=== PATIENT | female | born 1965 ===

== ENCOUNTER 2018-10-13 20:25 | Observation (INO) | payer SELFPAY ==
--- NOTE | 2018-10-13 21:14 | C.PDOC ---
History Of Present Illness 53 year old female with PMHc of HTN and ESRD presents to the ED c/o SOB, headache. Patient was recently admitted for renal failure and was discharged on 10/08. As per discharge indications patient was advised to return if dialysis wa s required again. Patient reports she is visiting from the [place] and will go back on 10/18. Patient is non complaint with her treatment, states her last dialysis was on Wednesday. Patient denies fever, chills, palpitations, nausea, vomit, abdominal pain, rash, weakness, numbness. Time Seen by Provider: 10/13/18 20:54 Chief Complaint (Nursing): Shortness Of Breath History Per: Patient History/Exam Limitations: no limitations Onset/Duration Of Symptoms: Days Current Symptoms Are (Timing): Still Present Initiating Event: Other Quality: "Pain" Current Respiratory Medications: See Home Med List Reports Recently: Seen In ED (10/04/18) Recent travel outside of the [place]: No Additional History Per: Patient Past Medical History Reviewed: Historical Data, Nursing Documentation, Vital Signs Vital Signs: Last Vital Signs Temp 97.5 F L 10/13/18 20:58 Pulse 84 10/13/18 20:58 Resp 16 10/13/18 20:58 BP 180/100 H 10/13/18 20:58 Pulse Ox 98 10/13/18 20:58 - Medical History PMH: HTN, End Stage Renal Disease, Chronic Kidney Disease Surgical History: No Surg Hx - [facility] (10/07/18) Family History: States: Unknown Family Hx - Social History Hx Alcohol Use: No Hx Substance Use: No - Immunization History Hx Tetanus Toxoid Vaccination: Yes Hx Influenza Vaccination: Yes Hx Pneumococcal Vaccination: No Review Of Systems Constitutional: Negative for: Fever, Chills Cardiovascular: Negative for: Chest Pain, Palpitations Respiratory: Positive for: Shortness of Breath. Negative for: Cough, Sputum Gastrointestinal: Negative for: Nausea, Vomiting, Abdominal Pain Genitourinary: Negative for: Dysuria Skin: Negative for: Rash Neurological: Positive for: Headache. Negative for: Weakness, Numbness, Dizziness Physical Exam - Physical Exam Appears: Non-toxic, No Acute Distress Skin: Normal Color, Warm, Dry, Other (right forearm varicosity non tender, non fluctuant, no erythema) Head: Atraumatic, Normacephalic Eye(s): bilateral: Normal Inspection Oral Mucosa: Moist Neck: Normal ROM, Supple Chest: Symmetrical Cardiovascular: Rhythm Regular Respiratory: Normal Breath Sounds, No Rales, No Rhonchi, No Wheezing Gastrointestinal/Abdominal: Soft, No Tenderness, No Guarding, No Rebound Extremity: Normal ROM, No Tenderness, No Swelling Neurological/Psych: Oriented x3, Normal Speech, Normal Cognition Gait: Steady ED Course And Treatment - Laboratory Results Result Diagrams: 10/13/18 21:22 10/13/18 21:22 Interpretation Of Abnormal: POTASSIUM HEMOLYZED ECG: Interpreted By Me, Viewed By Me ECG Rhythm: Sinus Rhythm Rate From EC (BPM) O2 Sat by Pulse Oximetry: 98 (ON RA) Pulse Ox Interpretation: Normal - Radiology CXR: Interpreted by Me, Viewed By Me CXR Interpretation: Yes: No Acute Disease. No: Infiltrates - Physician Consult Information Time Consulting Physician Contacted: 22:17 Physician Contacted: Wale Whaley Medical Decision Making Medical Decision Making: Plan: * EKG * Labs * CXR Disposition Counseled Patient/Family Regarding: Studies Performed, Diagnosis - Disposition Disposition: HOSPITALIZED Disposition Time: 22:17 Condition: SERIOUS Forms: [facility] (Telugu) - POA Present On Arrival: Poor Glycemic Control - Clinical Impression Clinical Impression: ESRD (end stage renal disease), Dyspnea - Scribe Statement The provider has reviewed the documentation as recorded by the Scribe Sunil Zaidi All medical record entries made by the Scribe were at my direction and personally dictated by me. I have reviewed the chart and agree that the record accurately reflects my personal performance of the history, physical exam, medical decision making, and the department course for this patient. I have also personally directed, reviewed, and agree with the discharge instructions and disposition.
--- NOTE | 2018-10-13 21:15 | C.PDOC ---
Time Seen by Provider: 10/13/18 20:54 Past Medical History Vital Signs: Last Vital Signs Temp 97.5 F L 10/13/18 20:58 Pulse 84 10/13/18 20:58 Resp 16 10/13/18 20:58 BP 180/100 H 10/13/18 20:58 Pulse Ox 98 10/13/18 21:14 - Medical History PMH: HTN, End Stage Renal Disease, Chronic Kidney Disease - [facility] (10/07/18) Family History: States: Unknown Family Hx - Social History Hx Alcohol Use: No Hx Substance Use: No - Immunization History Hx Tetanus Toxoid Vaccination: Yes Hx Influenza Vaccination: Yes Hx Pneumococcal Vaccination: No ED Course And Treatment O2 Sat by Pulse Oximetry: 98 Progress - Data Reviewed Data Reviewed: Lab, Diagnostic imaging, EKG, Old records Disposition - Disposition Forms: [employer] (Ugandan)
[2018-10-13 21:27] LABS: BASO # 0.1 K/uL (0.0-0.2); BASO % 0.9 % (0.0-2.0); EOS # 0.3 K/uL (0.0-0.7); EOS % 2.4 % (0.0-4.0); HEMOGLOBIN 11.7 g/dL (11.0-16.0); LYMPH # 1.8 K/uL (1.0-4.3); LYMPH % 17.2 % (20.0-40.0); MEAN CELL VOLUME 92.4 fL (81.0-99.0); MEAN CORPUSCULAR HEMOGLOBIN 29.4 pg (27.0-31.0); MEAN CORPUSCULAR HGB CONC 31.9 g/dL (33.0-37.0); MEAN PLATELET VOLUME 10.1 fL (7.2-11.7); MONO # 0.7 K/uL (0.0-0.8); MONO % 6.3 % (0.0-10.0); NEUT # 7.6 K/uL (1.8-7.0); NEUT % 73.2 % (50.0-75.0); RBC 3.96 Mil/uL (3.80-5.20); RED CELL DISTRIBUTION WIDTH 13.7 % (11.5-14.5); WHITE BLOOD COUNT 10.3 K/uL (4.8-10.8)
[2018-10-13 22:11] LABS: ALB/GLOB RATIO 1.3 (1.0-2.1); ALBUMIN 4.1 g/dL (3.5-5.0); CALCIUM 9.4 mg/dl (8.6-10.4)
[2018-10-13] MEDS ORDERED: Dextrose 50% SYRINGE Inj (50 ml) IVP STA (22:14)
[2018-10-13] MEDS ORDERED: Calcium Gluconate 4.65 MEQ in Dextrose 5% In Water 100 ML IV STA (22:14)
[2018-10-13] MEDS ORDERED: (Novolin R) Insulin Human Regular 100 units/ml vial IV STA (22:14)
--- NOTE | 2018-10-13 22:26 | CP.PCM.HP ---
<MurphyLizeth - Last Filed: 10/14/18 00:29> History of Present Illness - History of Present Illness History of Present Illness: Patient is a 53 year old female with pmhx of ESRD(TTS x3yrs) 2/2 PKD, presenting to ED with complaints of progressively worsening headache, SOB, chest heaviness, palpitations and tachycardia, abdominal distention and early satiety x3 days. Patient is visiting from the [facility], having arrived 10/01 with no plans for dialysis treatment in place. Patient presented to ED on 10/04 with similar complaints of fluid overload treated with HD 3x. Patient will be returning to [place] on 10/18. Denies chest pain, nausea, diarrhea. Per notes/records, patient admitted several times under name Conchita Jasmine for HD PMHx: ESRD 2/2 PKD, Fibroids PSHx: hysterectomy Meds: enalapril 20, amlodipine 10-non compliant Allergies: ASA-anaphylaxis SocHx: denies FamHx: Mom w/ ESRD 2/2 PKD Present on Admission - Present on Admission Any Indicators Present on Admission: No Review of Systems - Constitutional Constitutional: Headache - EENT Additional comments: perioral tingling - Cardiovascular Cardiovascular: Dyspnea, Edema, Leg Edema, Orthopnea, Palpitations, Rapid Heart Rate - Respiratory Respiratory: absent: Chest Congestion - Gastrointestinal Gastrointestinal: Constipation, Early Satiety. absent: Nausea - Genitourinary Additional comments: urinates 2-3x/day - Musculoskeletal Musculoskeletal: Arthralgias (chronic knee pain), Back Pain (chronic), Radiating Pain into Limb (back/leg pain) - Integumentary Integumentary: absent: Pruritus Past Patient History - Past Medical History & Family History Past Medical History?: Yes - Past Social History Smoking Status: Never Smoked - CARDIAC Hx Hypertension: Yes - NEUROLOGICAL Hx Neurological Disorder: No - HEENT Hx HEENT Problems: No - RENAL Hx Chronic Kidney Disease: Yes - ENDOCRINE/METABOLIC Hx Endocrine Disorders: No - HEMATOLOGICAL/ONCOLOGICAL Hx Blood Disorders: Yes Hx Hepatitis B: Yes (antibody) - INTEGUMENTARY Hx Dermatological Problems: No - MUSCULOSKELETAL/RHEUMATOLOGICAL Hx Falls: No - GASTROINTESTINAL Hx Gastrointestinal Disorders: No - GENITOURINARY/GYNECOLOGICAL Hx Genitourinary Disorders: No - PSYCHIATRIC Hx Substance Use: No - SURGICAL HISTORY Hx Surgeries: Yes Hx Vascular Access Device: Yes - ANESTHESIA Hx Anesthesia: Yes Hx Anesthesia Reactions: No Hx Malignant Hyperthermia: No Meds Allergies/Adverse Reactions: Allergies Allergy/AdvReac Type Severity Reaction Status Date / Time aspirin Allergy Severe ANGIOEDEMA Verified 10/13/18 21:02 Physical Exam - Constitutional Appears: Non-toxic, No Acute Distress - Head Exam Head Exam: ATRAUMATIC, NORMAL INSPECTION, NORMOCEPHALIC - Eye Exam Eye Exam: EOMI Pupil Exam: PERRL Additional comments: subconjunctival hemorrhages right eye - ENT Exam ENT Exam: Mucous Membranes Moist, Normal Exam - Neck Exam Neck exam: Positive for: Normal Inspection Additional comments: edema - Respiratory Exam Respiratory Exam: Clear to Auscultation Bilateral, NORMAL BREATHING PATTERN. absent: Respiratory Distress - Cardiovascular Exam Cardiovascular Exam: REGULAR RHYTHM, Systolic Murmur (holosystolic). absent: Tachycardia, JVD - GI/Abdominal Exam GI & Abdominal Exam: Distended, Normal Bowel Sounds, Soft Additional comments: sub umbilical midline incision-well healed - Extremities Exam Extremities exam: Positive for: pedal edema (<1 pitting edema B/L). Negative for: calf tenderness Additional comments: LUE AVF w/ palpable thrill - Neurological Exam Neurological exam: Alert, Oriented x3 - Psychiatric Exam Psychiatric exam: Normal Affect, Normal Mood - Skin Skin Exam: Dry, Intact, Normal Color, Warm Results - Vital Signs Recent Vital Signs: Last Vital Signs Temp 97.5 F L 10/13/18 20:58 Pulse 84 10/13/18 20:58 Resp 16 10/13/18 21:58 BP 180/100 H 10/13/18 20:58 Pulse Ox 98 10/13/18 22:17 - Labs Result Diagrams: 10/13/18 21:22 10/13/18 21:22 Labs: Laboratory Results - last 24 hr 10/13/18 10/13/18 21:22 21:22 WBC 10.3 RBC 3.96 Hgb 11.7 Hct 36.6 MCV 92.4 MCH 29.4 MCHC 31.9 L RDW 13.7 Plt Count 189 MPV 10.1 Neut % (Auto) 73.2 Lymph % (Auto) 17.2 L Esmeralda % (Auto) 6.3 Eos % (Auto) 2.4 Baso % (Auto) 0.9 Neut # (Auto) 7.6 H Lymph # (Auto) 1.8 Esmeralda # (Auto) 0.7 Eos # (Auto) 0.3 Baso # (Auto) 0.1 Sodium 137 Potassium 6.4 H* D Chloride 98 Carbon Dioxide 24 Anion Gap 21 H BUN 120 H* D Creatinine 15.4 H* D Est GFR ( Amer) 3 Est GFR (Non-Af Amer) 2 Random Glucose 139 H D Calcium 9.4 Total Bilirubin 0.8 AST 27 ALT 17 Alkaline Phosphatase 521 H NT-Pro-B Natriuret Pep 4910 H Total Protein 7.1 Albumin 4.1 Globulin 3.0 Albumin/Globulin Ratio 1.3 Assessment & Plan - Assessment and Plan (Free Text) Assessment: 53 year old female w/ pmhx of ESRD 2/2 PKD admitted for treatment of ESRD w/ HD Plan: Hyperkalemia -6.4 on admission, specimen slightly hemolyzed; -given Ca gluc, insulin 10U, Kayexalate in ED. -EKG unremarkable. -f/U repeat K -admission to telemetry Fluid overload -pBNP 4910 on admission -last dialyzed 10/08 -f/u CXR HTN -180/100 on admission -hold home meds for now; likely to resolve with HD Hypertrophic obstructive cardiomyopathy -diagnosed by echo 10/05 Ppx -renal diet -DVT ppx, SCD -GI ppx, pepcid Recommend patient receive dialysis as soon as possible. Nephrology consult, Dr. Gongora; left message. Discussed w/ Dr. Whaley -Lizeth Murphy, PGY-1 <Wale Whaley - Last Filed: 10/14/18 06:02> Results - Vital Signs Recent Vital Signs: Last Vital Signs Temp 97.5 F L 10/13/18 20:58 Pulse 76 10/14/18 03:12 Resp 16 10/14/18 03:12 BP 164/88 H 10/14/18 03:12 Pulse Ox 98 10/14/18 03:12 - Labs Result Diagrams: 10/14/18 05:19 10/14/18 00:30 Labs: Laboratory Results - last 24 hr 10/13/18 10/13/18 10/14/18 21:22 21:22 00:30 WBC 10.3 RBC 3.96 Hgb 11.7 Hct 36.6 MCV 92.4 MCH 29.4 MCHC 31.9 L RDW 13.7 Plt Count 189 MPV 10.1 Neut % (Auto) 73.2 Lymph % (Auto) 17.2 L Esmeralda % (Auto) 6.3 Eos % (Auto) 2.4 Baso % (Auto) 0.9 Neut # (Auto) 7.6 H Lymph # (Auto) 1.8 Esmeralda # (Auto) 0.7 Eos # (Auto) 0.3 Baso # (Auto) 0.1 PT INR APTT Sodium 137 Potassium 6.4 H* D 5.0 Chloride 98 Carbon Dioxide 24 Anion Gap 21 H BUN 120 H* D Creatinine 15.4 H* D Est GFR ( Amer) 3 Est GFR (Non-Af Amer) 2 Random Glucose 139 H D Calcium 9.4 Total Bilirubin 0.8 AST 27 ALT 17 Alkaline Phosphatase 521 H NT-Pro-B Natriuret Pep 4910 H Total Protein 7.1 Albumin 4.1 Globulin 3.0 Albumin/Globulin Ratio 1.3 10/14/18 10/14/18 05:19 05:19 WBC 11.3 H RBC 3.77 L Hgb 10.9 L Hct 34.8 MCV 92.4 MCH 28.9 MCHC 31.3 L RDW 13.8 Plt Count 180 MPV 10.0 Neut % (Auto) 70.0 Lymph % (Auto) 20.1 Esmeralda % (Auto) 6.8 Eos % (Auto) 2.7 Baso % (Auto) 0.4 Neut # (Auto) 7.9 H Lymph # (Auto) 2.3 Esmeralda # (Auto) 0.8 Eos # (Auto) 0.3 Baso # (Auto) 0.1 PT 12.3 H INR 1.1 APTT 35 H Sodium Potassium Chloride Carbon Dioxide Anion Gap BUN Creatinine Est GFR ( Amer) Est GFR (Non-Af Amer) Random Glucose Calcium Total Bilirubin AST ALT Alkaline Phosphatase NT-Pro-B Natriuret Pep Total Protein Albumin Globulin Albumin/Globulin Ratio Assessment & Plan - Date & Time Date: 10/14/18 (I have seen and examined the patient. I agree with the findings and plan of care as documented by Dr. Murphy. Patient with hyperkalemia and fluid overloaded. History of ESRD on dialysis. Past due for dialysis. [place]. Consult to nephro. Dialysis necessary to correct fluid status and hyperkalemia. Monitor for acute changes.) Time: 06:00 Attending/Attestation - Attestation I have personally seen and examined this patient.: Yes I have fully participated in the care of the patient.: Yes I have reviewed all pertinent clinical information: Yes
[2018-10-13] MEDS ORDERED: Calcium Gluconate 4.65 mEq/10 ml Inj IV ONE (22:30)
[2018-10-13] MEDS ORDERED: (Novolin R) Insulin Human Regular 100 units/ml vial ONE (22:30)
[2018-10-13] MEDS ORDERED: Dextrose 50% SYRINGE Inj (50 ml) ONE (22:31)
[2018-10-13] MEDS ORDERED: Calcium Gluconate 4.65 mEq/10 ml Inj ONE (22:31)
[2018-10-14 05:27] LABS: BASO # 0.1 K/uL (0.0-0.2); BASO % 0.4 % (0.0-2.0); EOS # 0.3 K/uL (0.0-0.7); EOS % 2.7 % (0.0-4.0); HEMOGLOBIN 10.9 g/dL (11.0-16.0); LYMPH # 2.3 K/uL (1.0-4.3); LYMPH % 20.1 % (20.0-40.0); MEAN CELL VOLUME 92.4 fL (81.0-99.0); MEAN CORPUSCULAR HEMOGLOBIN 28.9 pg (27.0-31.0); MEAN CORPUSCULAR HGB CONC 31.3 g/dL (33.0-37.0); MONO # 0.8 K/uL (0.0-0.8); MONO % 6.8 % (0.0-10.0); NEUT # 7.9 K/uL (1.8-7.0); RBC 3.77 Mil/uL (3.80-5.20); RED CELL DISTRIBUTION WIDTH 13.8 % (11.5-14.5); WHITE BLOOD COUNT 11.3 K/uL (4.8-10.8)
[2018-10-14 05:57] LABS: INR 1.1; PROTHROMBIN TIME 12.3 SECONDS (9.7-12.2)
[2018-10-14 06:32] LABS: ALB/GLOB RATIO 1.3 (1.0-2.1); ALBUMIN 3.5 g/dL (3.5-5.0); CALCIUM 9.5 mg/dl (8.6-10.4)
--- NOTE | 2018-10-14 08:48 | RAD ---
Date of service: 10/13/2018 PROCEDURE: CHEST RADIOGRAPH, 1 VIEW HISTORY: SOB COMPARISON: 10/04/2018. FINDINGS: LUNGS: The lungs are well inflated and clear. PLEURA: No pneumothorax or pleural effusion. CARDIOVASCULAR: The heart is normal in size. No aortic atherosclerotic calcifications present. OSSEOUS STRUCTURES: Within normal limits for the patient's age. VISUALIZED UPPER ABDOMEN: Normal. OTHER FINDINGS: None. IMPRESSION: No active pulmonary disease.
[2018-10-14] MEDS ORDERED: Calcium Gluconate 4.65 mEq/10 ml Inj IVP ONE (09:15)
--- NOTE | 2018-10-14 09:44 | CP.PCM.PN ---
<Ana Laura Mon - Last Filed: 10/14/18 15:53> Subjective - Date & Time of Evaluation Date of Evaluation: 10/14/18 Time of Evaluation: 07:30 - Subjective Subjective: PGY-1 Medicine Progress Note for Dr. Watkins Patient was seen and examined sitting up comfortably in bed eating breakfast. Nurse reports no overnight events. Patient feels the same as last night. She's very excited to eat since she's been hungry for the past couple days. She still feels tired, but denies any pain, shortness of breath, nausea, vomiting. She's only able to make small amounts of urine and can't remember when the last time was. Objective - Vital Signs/Intake and Output Vital Signs (last 24 hours): Temp Pulse Resp BP Pulse Ox 97.9 F 80 16 165/100 H 98 10/14/18 06:01 10/14/18 08:50 10/14/18 08:50 10/14/18 08:50 10/14/18 09:00 - Medications Medications: Current Medications Famotidine (Pepcid) 20 mg PO DAILY [facility] Last Admin: 10/14/18 09:17 Dose: 20 mg - Labs Labs: 10/14/18 05:19 10/14/18 05:19 PT 12.3 SECONDS (9.7-12.2) H 10/14/18 05:19 INR 1.1 10/14/18 05:19 APTT 35 SECONDS (21-34) H 10/14/18 05:19 - Constitutional Appears: Non-toxic, No Acute Distress - Head Exam Head Exam: ATRAUMATIC, NORMOCEPHALIC - Eye Exam Eye Exam: EOMI, Normal appearance - ENT Exam ENT Exam: Mucous Membranes Moist - Respiratory Exam Respiratory Exam: Clear to Ausculation Bilateral, Rhonchi (mild), NORMAL BREATHING PATTERN. absent: Rales, Wheezes - Cardiovascular Exam Cardiovascular Exam: REGULAR RHYTHM, +S1, +S2, Murmur Additional comments: holosystolic murmur - GI/Abdominal Exam GI & Abdominal Exam: Soft, Normal Bowel Sounds. absent: Tenderness Additional comments: well healed midline incision - Extremities Exam Extremities Exam: Normal Capillary Refill, Pedal Edema. absent: Calf Tenderness Additional comments: LUE IVF with palpable thrill and audible bruit - Neurological Exam Neurological Exam: Alert, Awake, Oriented x3 - Psychiatric Exam Psychiatric exam: Normal Affect, Normal Mood - Skin Skin Exam: Normal Color, Warm Assessment and Plan - Assessment and Plan (Free Text) Assessment: 53yo F PMH PKD admitted for treatment of ESRD with HD. Plan: ESRD on HD 2/2 Polycystic Kidney Disease - patient hasn't had HD since Wednesday. She[place] and didn't keep up with HD treatments since being discharged on the . - BUN/Cr 120/15.4 on admission - K 6.4 on admission, specimen slightly hemolyzed - ProBNP 4910, appropriate compared to last visit, and fluid overloaded status - given calcium gluconate x2, insulin 10u, Kayexalate in ED - EKG unremarkable - CXR (10/14): - Nephrology consulted: Dr. Ute Gongora - help appreciated - Patient consented, for HD today Hypertension - BP 180/100 on admission - holding home Vasotec and Lopressor for now; likely to resolved with HD - monitor vitals Hypertrophic Obstructive Cardiomyopathy, stable - diagnosed by ECHO 10/05 PPx - DVT: SCDs - GI: Pepcid 20mg po daily - Renal diet Note: patient known to service (previous admissions may be found under [facility] Jasmine). Has had previous admissions for missed dialysis. d/w Dr. June Mon PGY-1 <Dago Watkins - Last Filed: 10/15/18 19:51> Objective - Vital Signs/Intake and Output Vital Signs (last 24 hours): Temp Pulse Resp BP Pulse Ox 98.8 F 90 20 133/83 100 10/15/18 18:05 10/15/18 18:05 10/15/18 18:05 10/15/18 18:05 10/15/18 18:05 - Medications Medications: Current Medications Acetaminophen (Tylenol 325mg Tab) 650 mg PO Q6 PRN PRN Reason: Pain or Fever Last Admin: 10/15/18 16:47 Dose: 650 mg Famotidine (Pepcid) 20 mg PO DAILY [facility] Last Admin: 10/15/18 09:36 Dose: 20 mg Heparin Sodium (Porcine) (Heparin) 2,000 units IVP TTS [facility] Last Admin: 10/15/18 16:04 Dose: Not Given - Labs Labs: 10/15/18 07:02 10/15/18 07:02 PT 12.3 SECONDS (9.7-12.2) H 10/14/18 05:19 INR 1.1 10/14/18 05:19 APTT 35 SECONDS (21-34) H 10/14/18 05:19 Attending/Attestation - Attestation I have personally seen and examined this patient.: Yes I have fully participated in the care of the patient.: Yes I have reviewed all pertinent clinical information, including history, physical exam and plan: Yes Notes (Text): lady with ESRD on HD BUN/Cr 120/15.4 on admission and K 6.4 on admission, Patient needs dialysis we will follow with window glass cutter off assessment and the plan discussed with the resident and I agree with the do cumentation
--- NOTE | 2018-10-14 15:06 | CP.PCM.CON ---
History of Present Illness - History of Present Illness History of Present Illness: Nephrology Consultation Note: Assessment: Stable uremic, missed HD Hypertensive Chronic Kidney Disease (I12.0) End stage renal disease (N18.6) dependence on hemodialysis (Z99.2) (TTS) via AVF Anemia (D64.9), Hyperphosphatemia (E83.39), Secondary Hyperparathyroidism (E21.1), HTN (I12.0) PCKD Plan: Will plan for HD today as ordered. Will plan for dialysis tomorrow per TTS schedule. Continue with Nephrovite 1 tab/day. PRBC as needed for anemia.not on MARGRET with dialysis as last Hb 10.9 Continue with phos binders, last phos level: check BP control with meds as ordered. Glycemic control, Dialysis consistent diet Further work up/management as per primary team Dose meds/antibiotics (if needed) for ESRD status. Avoid fleets enema/magnesium based laxatives. compliance to dialysis reinforced Thanks for allowing me to participate in care of your patient. Will follow patient with you. Please call if any Qs Dr [place] Office: [phone] Chief Complaint; not feeling well HPI: Pt is a 53 F with hx of ESRD on hemodialysis (TTS) via AVF, chronic anemia, hyperphosphatemia, secondary hyperparathyroidism, PCKD, hypertension presented with complaints of not feeling well, lack of appetite, and missed hD for many days Renal consult requested for ESRD management. ROS: Cardiovascular: No chest pain. Pulmonary: No shortness of breath now Gastrointestinal: denies abdominal pain No nausea. No vomiting. Genitourinary: No pain while urinating. Denies blood in urine. All other negative except as mentioned in HPI Physical Examination: seen on HD General Appearance: Comfortable, in no acute respiratory distress, co-operative . Vitals reviewed and noted as below Head; Atraumatic, normocephalic ENT: no ulcers no thrush. Tongue is midline. Oropharynx: no rash or ulcers. EYES: Pupils are equal, round and reactive to light accommodation. Eye muscles and extraocular movement intact. Sclera is anicteric. Neck; supple no lymphadenopathy, no thyromegaly or bruit Lungs: Normal respiratory rate/effort. Breath sounds bilateral equal and clear Heart: Normal rate. s1s2 normal. No rub or gallop. Extremities: no edema. No varicose veins Neurological: Patient is alert, awake and oriented to person, place and time. No focal deficit. Strength bilateral appropriate and equal Skin: Warm and dry. Normal turgor. No rash. Palpitation: Normal elasticity for age Abdomen: Abdomen is soft. Bowel sounds +. There is no abdominal tenderness, no guarding/rigidity or organomegaly Psych: normal insight and normal affect/mood MSK: no joint tenderness or swelling. Digits and nails normal, no deformity : kidney or bladder not palpable Access: AVF Labs/imaging reviewed. Past medical history, past surgical history, family history, social history, allergy reviewed and noted as below Family Hx: no hx of CKD. Non contributory Past Patient History - Past Medical History & Family History Past Medical History?: Yes - Past Social History Smoking Status: Never Smoked - CARDIAC Hx Hypertension: Yes - NEUROLOGICAL Hx Neurological Disorder: No - HEENT Hx HEENT Problems: No - RENAL Hx Chronic Kidney Disease: Yes - ENDOCRINE/METABOLIC Hx Endocrine Disorders: No - HEMATOLOGICAL/ONCOLOGICAL Hx Blood Disorders: Yes Hx Hepatitis B: Yes (antibody) - INTEGUMENTARY Hx Dermatological Problems: No - MUSCULOSKELETAL/RHEUMATOLOGICAL Hx Falls: No - GASTROINTESTINAL Hx Gastrointestinal Disorders: No - GENITOURINARY/GYNECOLOGICAL Hx Genitourinary Disorders: No - PSYCHIATRIC Hx Substance Use: No - SURGICAL HISTORY Hx Surgeries: Yes Hx Vascular Access Device: Yes - ANESTHESIA Hx Anesthesia: Yes Hx Anesthesia Reactions: No Hx Malignant Hyperthermia: No Meds Allergies/Adverse Reactions: Allergies Allergy/AdvReac Type Severity Reaction Status Date / Time aspirin Allergy Severe ANGIOEDEMA Verified 10/13/18 21:02 - Medications Medications: Current Medications Famotidine (Pepcid) 20 mg PO DAILY [facility] Last Admin: 10/14/18 09:17 Dose: 20 mg Heparin Sodium (Porcine) (Heparin) 2,000 units IVP TTS [facility] Results - Vital Signs Recent Vital Signs: Last Vital Signs Temp 97.9 F 10/14/18 13:05 Pulse 74 10/14/18 13:05 Resp 20 10/14/18 13:05 BP 167/102 H 10/14/18 13:05 Pulse Ox 97 10/14/18 13:05 - Labs Result Diagrams: 10/14/18 05:19 10/14/18 05:19 Labs: Laboratory Results - last 24 hr 0110/13/18 10/14/18 21:22 21:22 00:30 WBC 10.3 RBC 3.96 Hgb 11.7 Hct 36.6 MCV 92.4 MCH 29.4 MCHC 31.9 L RDW 13.7 Plt Count 189 MPV 10.1 Neut % (Auto) 73.2 Lymph % (Auto) 17.2 L [place] % (Auto) 6.3 Eos % (Auto) 2.4 Baso % (Auto) 0.9 Neut # (Auto) 7.6 H Lymph # (Auto) 1.8 [place] # (Auto) 0.7 Eos # (Auto) 0.3 Baso # (Auto) 0.1 PT INR APTT Sodium 137 Potassium 6.4 H* D 5.0 Chloride 98 Carbon Dioxide 24 Anion Gap 21 H BUN 120 H* D Creatinine 15.4 H* D Est GFR ( Amer) 3 Est GFR (Non-Af Amer) 2 Random Glucose 139 H D Calcium 9.4 Total Bilirubin 0.8 AST 27 ALT 17 Alkaline Phosphatase 521 H NT-Pro-B Natriuret Pep 4910 H Total Protein 7.1 Albumin 4.1 Globulin 3.0 Albumin/Globulin Ratio 1.3 10/14/18 10/14/18 10/14/18 05:19 05:19 05:19 WBC 11.3 H RBC 3.77 L Hgb 10.9 L Hct 34.8 MCV 92.4 MCH 28.9 MCHC 31.3 L RDW 13.8 Plt Count 180 MPV 10.0 Neut % (Auto) 70.0 Lymph % (Auto) 20.1 [place] % (Auto) 6.8 Eos % (Auto) 2.7 Baso % (Auto) 0.4 Neut # (Auto) 7.9 H Lymph # (Auto) 2.3 [place] # (Auto) 0.8 Eos # (Auto) 0.3 Baso # (Auto) 0.1 PT 12.3 H INR 1.1 APTT 35 H Sodium 138 Potassium 5.6 H Chloride 101 Carbon Dioxide 21 L Anion Gap 21 H BUN 120 H* Creatinine 15.9 H* Est GFR ( Amer) 3 Est GFR (Non-Af Amer) 2 Random Glucose 88 D Calcium 9.5 Total Bilirubin 0.5 AST 16 ALT 17 Alkaline Phosphatase 518 H NT-Pro-B Natriuret Pep Total Protein 6.3 Albumin 3.5 Globulin 2.8 Albumin/Globulin Ratio 1.3
--- NOTE | 2018-10-15 00:24 | CP.PCM.PN ---
<Noé Murdock - Last Filed: 10/15/18 00:21> Subjective - Date & Time of Evaluation Date of Evaluation: 10/15/18 Time of Evaluation: 00:21 - Subjective Subjective: PGY-1 Medicine Progress Note for Dr. Watkins Patient was seen and examined resting comfortably in bed. Nurse reports no acute events. Patient reporting no symptomatic changes. Denies any pain, shortness of breath, nausea, vomiting. Objective - Vital Signs/Intake and Output Vital Signs (last 24 hours): Temp Pulse Resp BP Pulse Ox 98.4 F 87 20 155/78 H 97 10/15/18 00:12 10/15/18 00:12 10/15/18 00:12 10/15/18 00:12 10/15/18 00:12 - Medications Medications: Current Medications Famotidine (Pepcid) 20 mg PO DAILY REPLACED BY [facility] Last Admin: 10/14/18 09:17 Dose: 20 mg Heparin Sodium (Porcine) (Heparin) 2,000 units IVP TTS REPLACED BY [facility] Last Admin: 10/14/18 15:56 Dose: 2,000 units - Labs Labs: 10/14/18 05:19 10/14/18 05:19 PT 12.3 SECONDS (9.7-12.2) H 10/14/18 05:19 INR 1.1 10/14/18 05:19 APTT 35 SECONDS (21-34) H 10/14/18 05:19 Assessment and Plan - Assessment and Plan (Free Text) Assessment: 53yo F PMH PKD admitted for treatment of ESRD with HD. Plan: ESRD on HD 2/2 Polycystic Kidney Disease - patient hasn't had HD since Wednesday. She's visiting from and didn't keep up with HD treatments since being discharged on the . - BUN/Cr 120/15.4 on admission - K 6.4 on admission, specimen slightly hemolyzed - ProBNP 4910, appropriate compared to last visit, and fluid overloaded status - given calcium gluconate x2, insulin 10u, Kayexalate in ED - EKG unremarkable - CXR (10/14): - Nephrology consulted: Dr. Ute Gongora - help appreciated - Patient consented, for HD today Hypertension - BP 180/100 on admission - holding home Vasotec and Lopressor for now; likely to resolved with HD - monitor vitals Hypertrophic Obstructive Cardiomyopathy, stable - diagnosed by ECHO 10/05 PPx - DVT: SCDs - GI: Pepcid 20mg po daily - Renal diet Note: patient known to service (previous admissions may be found under [facility]). Has had previous admissions for missed dialysis. d/w Dr. June Murdock PGY-1 <Dago Watkins - Last Filed: 10/15/18 19:47> Objective - Vital Signs/Intake and Output Vital Signs (last 24 hours): Temp Pulse Resp BP Pulse Ox 98.8 F 90 20 133/83 100 10/15/18 18:05 10/15/18 18:05 10/15/18 18:05 10/15/18 18:05 10/15/18 18:05 - Medications Medications: Current Medications Acetaminophen (Tylenol 325mg Tab) 650 mg PO Q6 PRN PRN Reason: Pain or Fever Last Admin: 10/15/18 16:47 Dose: 650 mg Famotidine (Pepcid) 20 mg PO DAILY REPLACED BY [facility] Last Admin: 10/15/18 09:36 Dose: 20 mg Heparin Sodium (Porcine) (Heparin) 2,000 units IVP TTS REPLACED BY [facility] Last Admin: 10/15/18 16:04 Dose: Not Given - Labs Labs: 10/15/18 07:02 10/15/18 07:02 PT 12.3 SECONDS (9.7-12.2) H 10/14/18 05:19 INR 1.1 10/14/18 05:19 APTT 35 SECONDS (21-34) H 10/14/18 05:19 Attending/Attestation - Attestation I have personally seen and examined this patient.: Yes I have fully participated in the care of the patient.: Yes I have reviewed all pertinent clinical information, including history, physical exam and plan: Yes Notes (Text): Seen during dialysis no complain patient wants to sign out AMA after HD. 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
[2018-10-15 07:14] LABS: BASO % 0.4 % (0.0-2.0); EOS # 0.2 K/uL (0.0-0.7); EOS % 2.7 % (0.0-4.0); HEMOGLOBIN 11.6 g/dL (11.0-16.0); LYMPH # 2.3 K/uL (1.0-4.3); LYMPH % 25.7 % (20.0-40.0); MEAN CELL VOLUME 92.7 fL (81.0-99.0); MEAN CORPUSCULAR HEMOGLOBIN 30.5 pg (27.0-31.0); MEAN PLATELET VOLUME 10.3 fL (7.2-11.7); MONO # 0.7 K/uL (0.0-0.8); MONO % 8.2 % (0.0-10.0); NEUT # 5.7 K/uL (1.8-7.0); RBC 3.81 Mil/uL (3.80-5.20); RED CELL DISTRIBUTION WIDTH 13.8 % (11.5-14.5)
[2018-10-15 07:36] LABS: ALB/GLOB RATIO 1.3 (1.0-2.1); ALBUMIN 3.6 g/dL (3.5-5.0); CALCIUM 9.3 mg/dl (8.6-10.4)
--- NOTE | 2018-10-16 00:40 | CP.PCM.PN ---
Subjective - Date & Time of Evaluation Date of Evaluation: 10/16/18 Time of Evaluation: 00:40 - Subjective Subjective: PGY-1 Medicine Progress Note for Dr. Watkins Patient seen and examined at bedside. No acute events. Patient resting comfortably in bed. Has been sleeping well and tolerating HD. No acute complaints at this time. Objective - Vital Signs/Intake and Output Vital Signs (last 24 hours): Temp Pulse Resp BP Pulse Ox 98.3 F 86 18 144/80 96 10/15/18 23:37 10/15/18 23:37 10/15/18 23:37 10/15/18 23:37 10/15/18 23:37 - Medications Medications: Current Medications Acetaminophen (Tylenol 325mg Tab) 650 mg PO Q6 PRN PRN Reason: Pain or Fever Last Admin: 10/15/18 16:47 Dose: 650 mg Famotidine (Pepcid) 20 mg PO DAILY [facility] Last Admin: 10/15/18 09:36 Dose: 20 mg Heparin Sodium (Porcine) (Heparin) 2,000 units IVP TTS [facility] Last Admin: 10/15/18 16:04 Dose: Not Given - Labs Labs: 10/15/18 07:02 10/15/18 07:02 PT 12.3 SECONDS (9.7-12.2) H 10/14/18 05:19 INR 1.1 10/14/18 05:19 APTT 35 SECONDS (21-34) H 10/14/18 05:19 - Constitutional Appears: Non-toxic, No Acute Distress - Head Exam Head Exam: ATRAUMATIC, NORMOCEPHALIC - Eye Exam Eye Exam: EOMI, Normal appearance - ENT Exam ENT Exam: Mucous Membranes Moist - Respiratory Exam Respiratory Exam: Clear to Ausculation Bilateral, NORMAL BREATHING PATTERN. absent: Rhonchi, Wheezes - Cardiovascular Exam Cardiovascular Exam: REGULAR RHYTHM, +S1, +S2 - GI/Abdominal Exam GI & Abdominal Exam: Soft, Normal Bowel Sounds. absent: Tenderness - Extremities Exam Extremities Exam: absent: Pedal Edema Additional comments: LUE IVF with palpable thrill and audible bruit - Neurological Exam Neurological Exam: Alert, Awake, Oriented x3 - Psychiatric Exam Psychiatric exam: Normal Affect, Normal Mood - Skin Skin Exam: Dry, Intact Assessment and Plan - Assessment and Plan (Free Text) Assessment: 53yo F PMH PKD admitted for treatment of ESRD with HD. Plan: ESRD on HD 2/2 Polycystic Kidney Disease - patient hasn't had HD since Wednesday. [place] and didn't keep up with HD treatments since being discharged on the . - BUN/Cr 120/15.4 on admission - K 6.4 on admission, specimen slightly hemolyzed - ProBNP 4910, appropriate compared to last visit, and fluid overloaded status - given calcium gluconate x2, insulin 10u, Kayexalate in ED - EKG unremarkable - CXR (10/14): - Nephrology consulted: Dr. Ute Gongora/Dr. Park - help appreciated - Continue HD, phosphate binders, transfuse as needed for anemia Hypertension - BP 180/100 on admission - holding home Vasotec and Lopressor for now; likely to resolved with HD - monitor vitals Hypertrophic Obstructive Cardiomyopathy, stable - diagnosed by ECHO 10/05 PPx - DVT: SCDs - GI: Pepcid 20mg po daily - Renal diet Note: patient known to service (previous admissions may be found under [facility]). Has had previous admissions for missed dialysis. d/w Dr. June Murdock PGY-1
[2018-10-16 07:27] LABS: BASO % 0.5 % (0.0-2.0); EOS # 0.2 K/uL (0.0-0.7); EOS % 2.6 % (0.0-4.0); HEMOGLOBIN 12.1 g/dL (11.0-16.0); LYMPH # 2.3 K/uL (1.0-4.3); LYMPH % 27.3 % (20.0-40.0); MEAN CELL VOLUME 92.2 fL (81.0-99.0); MEAN CORPUSCULAR HEMOGLOBIN 29.9 pg (27.0-31.0); MEAN CORPUSCULAR HGB CONC 32.4 g/dL (33.0-37.0); MEAN PLATELET VOLUME 10.1 fL (7.2-11.7); MONO % 11.1 % (0.0-10.0); NEUT % 58.5 % (50.0-75.0); RBC 4.06 Mil/uL (3.80-5.20); RED CELL DISTRIBUTION WIDTH 13.5 % (11.5-14.5); WHITE BLOOD COUNT 8.6 K/uL (4.8-10.8)
[2018-10-16 07:28] VITALS: BP 137/74; PULSE 83; RESP 20; TEMP 98.4; O2SAT 98
[2018-10-16 07:46] LABS: ALB/GLOB RATIO 1.3 (1.0-2.1); ALBUMIN 3.9 g/dL (3.5-5.0); CALCIUM 9.9 mg/dl (8.6-10.4)
--- NOTE | 2018-10-16 13:05 | CARD ---
APPROVED REPORT Date of service: 10/13/2018 EKG Measurement Heart [id number] <Conclusion> Normal sinus rhythm Possible Left atrial enlargement Septal infarct, age undetermined Abnormal ECG
== END 2018-10-16 11:30 | disposition left against medical advice (07) ==
LOC: C.ER 20:25 → C.9E 22:16 → C.5S 10-14 12:07
PROVIDERS: ADMIT Family Medicine; ATTEND Family Medicine
DX: I12.0 Hypertensive chronic kidney disease with stage 5 chronic kidney disease or end stage renal disease (principal); N25.81 Secondary hyperparathyroidism of renal origin; N18.6 End stage renal disease; D64.9 Anemia, unspecified; E83.39 Other disorders of phosphorus metabolism; Z90.710 Acquired absence of both cervix and uterus; Z99.2 Dependence on renal dialysis
CPT/HCPCS: 36415; 71045; 80053; 83735; 83880; 84100; 84132; 85025; 85610; 85730; 93005; 96374; 99285; G0257; G0378; J0610; J1644